=== PATIENT | male | born 1955 | race Hispanic/Latino ===

== ENCOUNTER → 2017-11-30 | Day surgery (SDC) | payer BC ==
[2017-11-26 15:18] LABS: BASOPHILS % 0.4 % (0.0-1.0); EOSINOPHILS # (AUTO) 0.1 (0.0-0.4); EOSINOPHILS % 1.2 % (0.0-6.0); HEMATOCRIT 32.9 % (38.2-49.6); HEMOGLOBIN 10.4 g/dL (14.0-18.0); LYMPHOCYTES # (AUTO) 1.8 (1.0-3.2); LYMPHOCYTES % 24.9 % (18.0-39.1); MEAN CORPUSCULAR HEMOGLOBIN 23.4 pg (28-32); MEAN CORPUSCULAR HGB CONC 31.6 g/dL (31-35); MEAN CORPUSCULAR VOLUME 73.9 fL (81-99); MONOCYTES # (AUTO) 0.6 (0.2-0.8); MONOCYTES % 7.7 % (4.4-11.3); NEUTROPHILS # (AUTO) 4.7 (2.1-6.9); NEUTROPHILS % 65.4 % (38.7-80.0); PLATELET COUNT 343 x10e3/uL (140-360); RED BLOOD COUNT 4.45 x10e6/uL (4.3-5.7); RED CELL DISTRIBUTION WIDTH 15.1 % (11.7-14.4)
[2017-11-26 15:36] LABS: ALANINE AMINOTRANSFERASE 18 IU/L (0-55); ALBUMIN 3.8 g/dL (3.5-5.0); ALKALINE PHOSPHATASE 141 IU/L (40-150); ANION GAP 13.7 mmol/L (8-16); BLOOD UREA NITROGEN 14 mg/dL (7-26); BUN/CREATININE RATIO 14 (6-25); CALCIUM 9.5 mg/dL (8.4-10.2); CARBON DIOXIDE 28 mmol/L (22-29); CHLORIDE 102 mmol/L (98-107); CREATININE, SERUM 1.01 mg/dL (0.72-1.25); EST GLOMERULAR FILTRATION RATE > 60 ML/MIN (60-); GLUCOSE 140 mg/dL (74-118); POTASSIUM 3.7 mmol/L (3.5-5.1); SODIUM 140 mmol/L (136-145)
[~2017-11-30] MED LIST: FENTANYL CITRATE/PF 100MCG/2 ML INJ ONE; GLUCAGON FOR INJ 1 MG VIAL ONE; HYOSCYAMINE SULFATE 0.5 MG/ML AMP ONE; LIDOCAINE HCL 2% LOCAL INJ 5 ML SDV VIAL INJ ONE; LISINOPRIL-HCT1 EACH PO; METFORMIN HCL850 MG PO; MIDAZOLAM HCL 2 MG/2 ML VIAL ONE; PHENYLEPHRINE HCL 1% 10 MG/ML VIAL ONE; PROPOFOL IV EMULSION 10 MG/ML 50 ML VIAL ONE
--- NOTE | 2017-11-30 13:39 | Operative Report ---
DATE OF PROCEDURE: November 30, 2017 REFERRING PHYSICIAN: Dr. Muriel Flower PROCEDURE PERFORMED: Colonoscopy with biopsies. INDICATIONS FOR COLONOSCOPY: Colorectal cancer screening. MEDICATION: Patient was done under MAC. Please see anesthesiologist's note. PROCEDURE: With patient in left lateral decubitus position, the flexible fiberoptic Olympus colonoscope was inserted into the rectum with ease and advanced to approximately 20 cm from the anal verge. A fully circumferential lesion was noted at approximately 20 cm and could not be traversed with the adult colonoscope. The scope was then withdrawn and an EGD scope was reintroduced and with gentle persistent pressure, the mass was traversed and the scope was advanced all the way to the cecum. A minute ulcer was noted in the cecum that was biopsied. The scope was then withdrawn slowly. The area was visualized and mucosa overlying the ascending, transverse and descending grossly appeared to be within normal limits. There was some minimal diverticulosis noted in the distal descending colon and the sigmoid colon. Multiple biopsies were obtained from the mass and also the site was tattooed. The scope was then retroflexed into the distal rectum and small internal hemorrhoids were noted, none of which was actively bleeding. The scope was then straightened out. It was subsequently withdrawn. Patient tolerated the procedure well. IMPRESSION 1. Cecal ulcer, minute, biopsied. 2. Diverticulosis. 3. Fully circumferential mass at 20 cm from anal verge traversed only with the esophagogastroduodenoscopy scope, biopsies obtained. Site tattooed. 4. Internal hemorrhoids, none actively bleeding. PLAN: Follow up histology. Patient will need a CT scan of the abdomen and pelvis. General surgical consult. Timing of followup colonoscopy will be one year after surgery. Job#: [id number] cc:MD DANII JAUREGUI MD
== END | disposition home or self-care (01) ==
LOC: OR 09:57 → EDBD 12:00
PROVIDERS: ATTEND Internal Medicine Gastroenterology
DX: Z12.11 Encounter for screening for malignant neoplasm of colon (principal); K57.30 Diverticulosis of large intestine without perforation or abscess without bleeding; K63.3 Ulcer of intestine; E11.9 Type 2 diabetes mellitus without complications; I10 Essential (primary) hypertension; Z83.3 Family history of diabetes mellitus; E66.3 Overweight; Z68.29 Body mass index [BMI] 29.0-29.9, adult; K64.8 Other hemorrhoids; K62.89 Other specified diseases of anus and rectum; Z01.812 Encounter for preprocedural laboratory examination
CPT/HCPCS: 36415 ×2; 45380; 80053; 82948; 85025; 93005; J1610; J1980; J2001; J2250; J2370; 45381

== ENCOUNTER → 2017-12-01 | Outpatient (CLI) | payer BC ==
[~2017-12-01] MED LIST changes: +DIATRIZOATE MEGL/DIATRIZOA SOD 30 ML BTL PO ONE; -FENTANYL CITRATE/PF 100MCG/2 ML INJ ONE; -GLUCAGON FOR INJ 1 MG VIAL ONE; -HYOSCYAMINE SULFATE 0.5 MG/ML AMP ONE; +IOPAMIDOL 370 MG/ML 200 ML INFUS..BTL INJ ONE; -LIDOCAINE HCL 2% LOCAL INJ 5 ML SDV VIAL INJ ONE; -MIDAZOLAM HCL 2 MG/2 ML VIAL ONE; -PHENYLEPHRINE HCL 1% 10 MG/ML VIAL ONE; -PROPOFOL IV EMULSION 10 MG/ML 50 ML VIAL ONE; +SODIUM CHLORIDE 0.9% 50ML 50 ML ONE
--- NOTE | 2017-12-01 11:14 | Diagnostic Imaging Report ---
PROCEDURE: CT ABDOMEN AND PELVIS WITH CONTRAST TECHNIQUE: The abdomen and pelvis were scanned utilizing a multidetector helical scanner from the diaphragm to the lesser trochanter after the IV administration of 80 cc Isovue 370 and the oral administration of Gastrografin. Coronal and sagittal multiplanar reformations were obtained. COMPARISON: None. INDICATIONS: ABDOMEN PAIN, cecal mass FINDINGS: LOWER THORAX: 1.2 cm round noncalcified solid nodule in the left upper lobe (series 2, image one). Plain bases are otherwise unremarkable. No pleural or pericardial effusion. HEPATOBILIARY: Multiple (10-15) irregularly marginated hypoattenuating lesions, some with peripheral hyperemia, scattered throughout the right and left lobes. Photoengraving Etcher lesions measure 4.4 cm in segment 8 (series 2 image 15), 2.9 cm in segment 4A (series 2 image 17), 4.2 cm in segment 3 (series 2, image 23), 3.3 cm in segment 5 (series 2 image 30), 7 cm in segment 5-6 (series 2 image 32). No intrahepatic biliary ductal dilatation. The gallbladder is unremarkable. SPLEEN: No splenomegaly. PANCREAS: No focal masses or ductal dilatation. ADRENALS: No adrenal nodules. KIDNEYS/URETERS: Subcentimeter hypoattenuating lesions in the upper pole of the right kidney are too small to further characterize though likely to represent small cysts. PELVIC ORGANS/BLADDER: The urinary bladder is unremarkable. The prostate is enlarged, measuring 4.5 cm. PERITONEUM / RETROPERITONEUM: No ascites. No pneumoperitoneum. LYMPH NODES: No pelvic side wall lymphadenopathy, though there is an enlarged mesocolic lymph node adjacent to the sigmoid colon measuring 1.3 cm in diameter (series 2 image 68). 0.7 cm inferior mesenteric lymph node is seen on series 2 image 67. VESSELS: The abdominal aorta, major branch vessels, and iliac arterial systems are patent with minimal atherosclerotic calcification of the infrarenal abdominal aorta and iliac arterial systems. The left hepatic artery is replaced to the left gastric artery. A single renal artery perfuses each kidney. Portal vein, splenic vein, and central superior mesenteric vein are patent. GI TRACT: Irregular wall thickening and enhancement involving an approximately 5 cm segment of sigmoid colon (series 2 image 77). Scattered diverticula distally along the sigmoid colon without evidence of diverticulitis. The remainder of the large bowel shows no distention or wall thickening. The appendix is normal. No small bowel dilatation to suggest obstruction. BONES AND SOFT TISSUES: Bilateral fat containing inguinal hernias. Small fat containing umbilical hernia. No additional focal soft tissue abnormalities. Bilateral degenerative changes of the hips with multilevel degenerative disc the disease and facet arthropathy of the lumbar spine. No osseous destructive lesions. IMPRESSION: Findings are highly concerning for primary sigmoid colon malignancy with regional and distant metastases involving mesenteric lymph nodes, the liver, and the left lung. Findings were discussed by telephone with Nurse Practitioner Ms. Coats of Dr. Gold's office at 1110 hrs. on 12/01/2017. Dictated by: Christopher Ngo M.D. on 12/01/2017 at 11:20 Electronically approved by: Christopher Ngo M.D. on 12/01/2017 at 11:20
== END ==
LOC: CT 08:07
PROVIDERS: ATTEND Internal Medicine Gastroenterology
DX: R10.9 Unspecified abdominal pain (principal); R19.09 Other intra-abdominal and pelvic swelling, mass and lump; K63.9 Disease of intestine, unspecified
CPT/HCPCS: 74177; Q9967; 76937

== ENCOUNTER → 2018-01-01 | Day surgery (SDC) | payer BC ==
[2017-12-31 09:54] LABS: BASOPHILS % 0.4 % (0.0-1.0); EOSINOPHILS % 0.5 % (0.0-6.0); HEMATOCRIT 34.3 % (38.2-49.6); HEMOGLOBIN 10.7 g/dL (14.0-18.0); LYMPHOCYTES # (AUTO) 1.9 (1.0-3.2); LYMPHOCYTES % 25.3 % (18.0-39.1); MEAN CORPUSCULAR HEMOGLOBIN 23.3 pg (28-32); MEAN CORPUSCULAR HGB CONC 31.2 g/dL (31-35); MEAN CORPUSCULAR VOLUME 74.7 fL (81-99); MONOCYTES # (AUTO) 0.6 (0.2-0.8); MONOCYTES % 8.5 % (4.4-11.3); NEUTROPHILS # (AUTO) 4.7 (2.1-6.9); PLATELET COUNT 311 x10e3/uL (140-360); RED BLOOD COUNT 4.59 x10e6/uL (4.3-5.7); RED CELL DISTRIBUTION WIDTH 14.9 % (11.7-14.4)
[2017-12-31 10:10] LABS: BLOOD UREA NITROGEN 19 mg/dL (7-26); BUN/CREATININE RATIO 21 (6-25); CALCIUM 9.8 mg/dL (8.4-10.2); CARBON DIOXIDE 25 mmol/L (22-29); CHLORIDE 102 mmol/L (98-107); CREATININE, SERUM 0.91 mg/dL (0.72-1.25); EST GLOMERULAR FILTRATION RATE > 60 ML/MIN (60-); GLUCOSE 125 mg/dL (74-118); SODIUM 137 mmol/L (136-145)
--- NOTE | 2017-12-31 14:49 | Diagnostic Imaging Report ---
PROCEDURE: X-RAY CHEST, TWO VIEWS COMPARISON: None. INDICATIONS: PRE-OP/LINE PLACEMENT FOR IV ACCESS FINDINGS: LUNGS: No consolidations or edema. PLEURA: No effusions or pneumothorax. HEART \T\ MEDIASTINUM: The heart is within normal size-limits. BONES \T\ SOFT TISSUES: No acute findings. Degenerative changes of the spine and shoulders. CONCLUSION: No acute thoracic abnormality. Bryon Walters D.O. Dictated by: Bryon Walters D.O. on 12/31/2017 at 10:38 Electronically approved by: Bryon Walters D.O. on 12/31/2017 at 13:18
[~2018-01-01] MED LIST changes: +BUPIVACAINE 0.25% 30ML SDV INJ ONE; +CEFAZOLIN SOD 1 GM VIAL ONE; +DEXAMETHASONE SOD PHOS INJ 4 MG/ML VIAL ONE; -DIATRIZOATE MEGL/DIATRIZOA SOD 30 ML BTL PO ONE; +FENTANYL CITRATE/PF 100MCG/2 ML INJ ONE; +HEPARIN SOD (PORCINE) 5,000 UNIT/ML VIAL ONE; -IOPAMIDOL 370 MG/ML 200 ML INFUS..BTL INJ ONE; +KETOROLAC TROMETHAMINE 30 MG/ML VIAL ONE; +LIDOCAINE HCL 1% LOCAL INJ 20 ML VIAL ONE; +LIDOCAINE HCL 2% LOCAL INJ 5 ML SDV VIAL INJ ONE; +LISINOPRIL-HCT1 EAC2 PO; +MIDAZOLAM HCL 2 MG/2 ML VIAL ONE; +ONDANSETRON HCL INJ 2 MG/ML VIAL ONE; +PROPOFOL IV EMULSION 10 MG/ML 20 ML VIAL ONE; +SEVOFLURANE INHAL SOLN 250 ML PEN BTL ONE; +SODIUM CHLORIDE 0.9% 500ML 500 ML ONE; -SODIUM CHLORIDE 0.9% 50ML 50 ML ONE
--- NOTE | 2018-01-01 16:33 | Operative Report ---
DATE OF PROCEDURE: January 01, 2018 PREOPERATIVE DIAGNOSIS: Colon cancer, needing IV access for chemotherapy. POSTOPERATIVE DIAGNOSIS: Colon cancer, needing IV access for chemotherapy. OPERATION PERFORMED: Placement of left subclavian venous access port under C-arm guidance. ANESTHESIA: General. COMPLICATIONS: None. ESTIMATED BLOOD LOSS: Minimal. DESCRIPTION OF PROCEDURE: With the patient lying in bed in the Trendelenburg position under good general anesthesia, the left chest and neck were prepped with Betadine solution and draped in the usual manner. A standard left subclavian mini puncture was performed without any difficulty and a guidewire was advanced into central venous position. Using the C-arm the tip of the guidewire was confirmed to be at the level of the superior vena cave and the left lung was fully expanded. A pocket was then created in the left anterior chest to accept the reservoir and the catheter was then threaded to the subclavian position. The reservoir was then anchored to the anterior chest wall with interrupted sutures of 2-0 silk. The reservoir and catheter were fully heparinized and the catheter was cut to the appropriate length. The peel-away sheath introducer was then placed over the guidewire. The guidewire was removed and the catheter was threaded through the peel-away sheath introducer without any difficulty. The peel-away sheath was removed. There was good blood return and the reservoir and catheter were fully heparinized. Using the C-arm, the tip of the catheter was confirmed to be at the level of the superior vena cava and the left lung was fully expanded. The wounds were then closed in layers. The subcutaneous tissue was approximated with 3-0 and 4-0 Vicryl and the skin was closed with subcuticular 5-0 Vicryl. Benzoin, Steri-Strips and dressings were applied. The sponge, lap and needle count was correct. Patient tolerated the procedure well and returned to the recovery room in stable condition. Job#: [id number]
[2018-01-01 16:45] VITALS: BP 115/74
== END | disposition home or self-care (01) ==
LOC: OR 11:54
PROVIDERS: ATTEND Surgery
DX: C18.9 Malignant neoplasm of colon, unspecified (principal); E11.9 Type 2 diabetes mellitus without complications; I10 Essential (primary) hypertension; Z01.812 Encounter for preprocedural laboratory examination
CPT/HCPCS: 36415 ×2; 36561; 71046; 76000; 80048; 82948; 85025; 93005; C1751; J0690; J1100; J1644; J1885; J2001; J2250; J2405; J7040

== ENCOUNTER 2018-06-09 06:29 | Inpatient (IN) | payer BC ==
[2018-06-04 12:26] LABS: BASOPHILS % 0.4 % (0.0-1.0); EOSINOPHILS # (AUTO) 0.1 (0.0-0.4); EOSINOPHILS % 0.7 % (0.0-6.0); HEMATOCRIT 42.6 % (38.2-49.6); HEMOGLOBIN 15.1 g/dL (14.0-18.0); LYMPHOCYTES # (AUTO) 2.3 (1.0-3.2); LYMPHOCYTES % 32.1 % (18.0-39.1); MEAN CORPUSCULAR HEMOGLOBIN 30.8 pg (28-32); MEAN CORPUSCULAR HGB CONC 35.4 g/dL (31-35); MEAN CORPUSCULAR VOLUME 86.9 fL (81-99); MONOCYTES # (AUTO) 0.5 (0.2-0.8); NEUTROPHILS # (AUTO) 4.2 (2.1-6.9); NEUTROPHILS % 59.2 % (38.7-80.0); PLATELET COUNT 278 x10e3/uL (140-360); RED CELL DISTRIBUTION WIDTH 12.6 % (11.7-14.4)
[2018-06-04 12:39] LABS: ANION GAP 16.9 mmol/L (8-16); BLOOD UREA NITROGEN 11 mg/dL (7-26); BUN/CREATININE RATIO 13 (6-25); CALCIUM 9.7 mg/dL (8.4-10.2); CARBON DIOXIDE 27 mmol/L (22-29); CHLORIDE 100 mmol/L (98-107); CREATININE, SERUM 0.82 mg/dL (0.72-1.25); EST GLOMERULAR FILTRATION RATE > 60 ML/MIN (60-); GLUCOSE 136 mg/dL (74-118); POTASSIUM 3.9 mmol/L (3.5-5.1); SODIUM 140 mmol/L (136-145)
--- NOTE | 2018-06-04 13:14 | Diagnostic Imaging Report ---
EXAMINATION: PA and lateral views of the chest. COMPARISON: None CLINICAL HISTORY: Preoperative evaluation, colon cancer DISCUSSION: Lines/tubes: Left chest port with tip overlying the SVC. Lungs: The lungs are well inflated and clear. No pneumonia or pulmonary edema. Pleura: No pleural effusion or pneumothorax. Heart and mediastinum: The cardiomediastinal silhouette is normal. Bones and soft tissues: No acute bony abnormalities. IMPRESSION: No acute cardiopulmonary abnormalities. Signed by: Dr. Melquiades Robertson M.D. on 06/04/2018 1:11 PM
[~2018-06-09] VITALS: Ht 165.1 cm; Wt 82.4 kg
[~2018-06-09 06:29] MED LIST changes: -BUPIVACAINE 0.25% 30ML SDV INJ ONE; -CEFAZOLIN SOD 1 GM VIAL ONE; -DEXAMETHASONE SOD PHOS INJ 4 MG/ML VIAL ONE; -FENTANYL CITRATE/PF 100MCG/2 ML INJ ONE; -HEPARIN SOD (PORCINE) 5,000 UNIT/ML VIAL ONE; -KETOROLAC TROMETHAMINE 30 MG/ML VIAL ONE; -LIDOCAINE HCL 1% LOCAL INJ 20 ML VIAL ONE; -LIDOCAINE HCL 2% LOCAL INJ 5 ML SDV VIAL INJ ONE; +METFORMIN HCL500 MG PO; -MIDAZOLAM HCL 2 MG/2 ML VIAL ONE; +OMEGA 3 FISH O1 EACH PO; -ONDANSETRON HCL INJ 2 MG/ML VIAL ONE; -PROPOFOL IV EMULSION 10 MG/ML 20 ML VIAL ONE; -SEVOFLURANE INHAL SOLN 250 ML PEN BTL ONE; -SODIUM CHLORIDE 0.9% 500ML 500 ML ONE
[2018-06-09] MEDS ORDERED: INSULIN REGULAR, HUMAN 100 UNIT/1 ML 3ML VIAL ONE (07:11)
[2018-06-09] MEDS: DEXTROSE 5%/LACTATED RINGERS 1,000 ML IV SCH ×2 (11:12→21:12)
[2018-06-09] MEDS ORDERED: NALOXONE HCL INJ 0.4 MG/ML AMP IV PRN (11:15)
[2018-06-09] MEDS ORDERED: PROMETHAZINE HCL (IM) 25 MG/ML VIAL IV PRN (11:15)
[2018-06-09] MEDS ORDERED: ACETAMINOPHEN 1000 MG/100 ML IV PRN (11:15)
[2018-06-09] MEDS ORDERED: HYDROMORPHONE 2MG/ML 2 MG/ML ML ONE (11:44)
[2018-06-09] MEDS ORDERED: HYDROMORPHONE 0.2MG/ML-SOD CHL 30ML PCA SYRINGE IV ONE (11:44)
[2018-06-09] MEDS ORDERED: PROMETHAZINE 12.5MG/ NACL 0.9% 50 ML IV PRN (11:45)
--- NOTE | 2018-06-09 12:13 | Operative Report ---
DATE OF PROCEDURE: June 09, 2018 PREOPERATIVE DIAGNOSIS: Carcinoma of the sigmoid colon with liver metastasis. POSTOPERATIVE DIAGNOSIS: Carcinoma of the sigmoid colon with liver metastasis. OPERATION PERFORMED: Exploratory laparotomy and sigmoid colon resection. PROFESSOR OF BIOLOGY: Dr. Corbin Carpenter. ANESTHESIA: General endotracheal. COMPLICATIONS: None. ESTIMATED BLOOD LOSS: 50 mL. DESCRIPTION OF PROCEDURE: With the patient lying in bed in the supine position, with the legs up in stirrups, the abdomen and perineum were prepped with Betadine solution and draped in the usual manner. A lower midline incision was made. It was carried down through the subcutaneous tissue down to the midline fascia. The midline fascia was opened, and the abdomen was entered. Upon entering the abdominal cavity, examination revealed the tattoo that the patient had in the area of the colon cancer. This was actually up higher in the sigmoid colon than we had anticipated. This was actually a mid-sigmoid colon lesion. Examination of the rest of the abdominal cavity revealed the presence of some palpable nodules in the dome of the right lobe of the liver. The rest of the abdominal exploration was otherwise within normal limits. We decided to go ahead and proceed with the colon resection. The left colon was then mobilized off of the lateral gutter and brought medially without any difficulty. The splenic flexure was brought down without any problems. At this point, the colon was then divided proximally and distally to the lesion, removing the entire sigmoid colon. Using the Enseal device, the mesentery of the colon was then slowly and carefully taken down, and the colon was divided proximally and distally with a stapler. The specimen was sent for pathological examination. After this was done, a [id number] anastomosis was then created with another application of the PARKER 75 stapler with the remaining opening closed with a TA-60 stapler. Gloves and instruments were changed. Anastomosis was then reinforced with interrupted sutures of 3-0 silk, and the mesenteric rent was closed with a running suture of 2-0 Vicryl. The abdomen was then irrigated. Hemostasis was ascertained. The abdomen was then closed in layers. Peritoneum was closed with a running suture of #1 Vicryl. The midline fascia was closed with a running suture of #1 PDS, and the skin was closed with clips. A dressing was applied. The sponge, lap and needle count was correct. Patient tolerated the procedure well and returned to the recovery room in stable condition. Job#: [id number] MH
[2018-06-09 14:55] VITALS: BP 123/64
--- NOTE | 2018-06-09 15:00 | NUR ---
ARRIVED VIA STRETCHER, AA&OX3, NC @2L, ABD DRESSING CDI/BINDER INTACT, DOLL TO BSD, PAIN CONTROLLED WITH BRANCH OPERATIONS COORDINATOR, CHECKED WITH PACU NURSE, ORIENTED TO ROOM AND CALL LIGHT , CALL LIGHT WITHIN REACH
[2018-06-09 15:20] VITALS: BP 125/64
[2018-06-09] MEDS: CEFOXITIN 1GM/ NS 50ML 50 ML IV SCH ×2 (15:30→20:41)
[2018-06-09] MEDS: PANTOPRAZOLE 40 MG 10ML VIAL IV SCH (15:30)
[2018-06-09] MEDS ORDERED: SEVOFLURANE INHAL SOLN 250 ML PEN BTL ONE (17:48)
[2018-06-09] MEDS ORDERED: GLYCOPYRROLATE INJ 1MG/ 5 ML SYR ONE (17:48)
[2018-06-09] MEDS ORDERED: PHENYLEPHRINE HCL 1% 10 MG/ML VIAL ONE (17:48)
[2018-06-09] MEDS ORDERED: LIDOCAINE HCL 2% LOCAL INJ 5 ML SDV VIAL INJ ONE (17:48)
[2018-06-09] MEDS ORDERED: PROPOFOL IV EMULSION 10 MG/ML 20 ML VIAL ONE (17:48)
[2018-06-09] MEDS ORDERED: CEFOXITIN SOD 1 GM VIAL ONE (17:48)
[2018-06-09] MEDS ORDERED: ACETAMINOPHEN 1000 MG/100 ML IV ONE (17:48)
[2018-06-09] MEDS ORDERED: DEXAMETHASONE SOD PHOS INJ 4 MG/ML VIAL ONE (17:48)
[2018-06-09] MEDS ORDERED: NEOSTIGMINE 5 MG/5ML SYR ONE (17:48)
[2018-06-09] MEDS ORDERED: ONDANSETRON HCL INJ 2MG/ML 2ML 2 MG/ML VIAL ONE (17:48)
[2018-06-09] MEDS ORDERED: ROCURONIUM BROMIDE 10 MG/ML 5ML VIAL ONE (17:48)
[2018-06-09] MEDS ORDERED: MIDAZOLAM HCL 2 MG/2 ML VIAL ONE (18:44)
[2018-06-09] MEDS ORDERED: FENTANYL CITRATE/PF 100MCG/2 ML INJ ONE (18:44)
--- NOTE | 2018-06-09 19:36 | NUR ---
TELEPHONED MD Karina LARSON TO MAKE AWARE OF PT SPOT BLOOD GLUCOSE LEVEL, AND TO CLARIFY IF WANTS SS AND INSULIN, AWAITING CALL BACK
--- NOTE | 2018-06-09 19:40 | NUR ---
Received change of shift report from AM nurse. Walking rounds completed.
[2018-06-09 20:00] VITALS: BP 108/66
[2018-06-09] MEDS: INSULIN REGULAR, HUMAN 100 UNIT/1 ML 3ML VIAL SQ SCH (23:12)
[2018-06-10] VITALS: BP 111/63
[2018-06-10 04:00] VITALS: BP 124/63
[2018-06-10] MEDS: HYDROMORPHONE 0.2MG/ML-SOD CHL 30ML PCA SYRINGE IV PRN (04:24)
[2018-06-10] MEDS: INSULIN REGULAR, HUMAN 100 UNIT/1 ML 3ML VIAL SQ SCH ×3 (06:00→19:26)
[2018-06-10 06:25] LABS: BASOPHILS % 0.2 % (0.0-1.0); HEMATOCRIT 38.2 % (38.2-49.6); HEMOGLOBIN 13.1 g/dL (14.0-18.0); LYMPHOCYTES % 8.8 % (18.0-39.1); MEAN CORPUSCULAR HEMOGLOBIN 30.4 pg (28-32); MEAN CORPUSCULAR HGB CONC 34.3 g/dL (31-35); MEAN CORPUSCULAR VOLUME 88.6 fL (81-99); MONOCYTES # (AUTO) 0.9 (0.2-0.8); MONOCYTES % 8.4 % (4.4-11.3); NEUTROPHILS % 82.2 % (38.7-80.0); PLATELET COUNT 242 x10e3/uL (140-360); RED BLOOD COUNT 4.31 x10e6/uL (4.3-5.7); RED CELL DISTRIBUTION WIDTH 11.8 % (11.7-14.4)
[2018-06-10] MEDS: DEXTROSE 5%/LACTATED RINGERS 1,000 ML IV SCH ×2 (06:31→17:44)
[2018-06-10 06:38] LABS: ANION GAP 14.6 mmol/L (8-16); BLOOD UREA NITROGEN 13 mg/dL (7-26); BUN/CREATININE RATIO 14 (6-25); CALCIUM 8.9 mg/dL (8.4-10.2); CARBON DIOXIDE 25 mmol/L (22-29); CHLORIDE 101 mmol/L (98-107); EST GLOMERULAR FILTRATION RATE > 60 ML/MIN (60-); GLUCOSE 205 mg/dL (74-118); POTASSIUM 4.6 mmol/L (3.5-5.1); SODIUM 136 mmol/L (136-145)
--- NOTE | 2018-06-10 07:16 | NUR ---
pt lying in bed resp even and unlabored at this time, MAGAZINE PUBLISHER pump intact, pt arousal to name, no distress noted, pt able to make needs known.
[2018-06-10 07:50] VITALS: BP 110/55
[2018-06-10 12:15] VITALS: BP 116/65
[2018-06-10 15:56] VITALS: BP 138/64
--- NOTE | 2018-06-10 16:30 | NUR ---
CASE MANAGEMENT INITIAL ASSESSMENT Bulk Plant Supervisor to bedside to discuss plan of care with patient/family. CM/SW role and care transitions discussed. Anticipated discharge plan discussed along with duration of care. CM/SW discussed patients right to make decisions in care. CM/SW work hours given. Patient lives: with and 2 daughters Admit/Transfer: from PACU Hospital/ER visits since last admit: was last admitted December of last year, no visits since then POA/Emergency contact: Stacey Rowan [phone] Current/Previous Home Health: none PCP/Follow-up Care: Dr. Dia Flower / Dr. Avila for oncology - pt states he will follow up with Dr. Avila after discharge Current/Previous DME: none Medications (referring to index hospitalization or the first time you were in the hospital) a. Were changes made in your medications when you were in the hospital on [date of index hospitalization]? n/a b. Did you understand the changes? n/a c. Were you able to obtain your new medications right away? n/a d. Were you able to take your medications like the doctor wanted you to? n/a e. Did the hospital give you an accurate, easy to understand list of medications when you left? n/a Scale of 1-10 how comfortable does patient feel with disease management in outpatient settin Other Services: recently on chemo, last treatment April 15 or Employment Status: employed at [employer] Areas of Concerns: cancer Referral Needs: none Education Needs: medical management IMM/BULLOCK given and signed (if applicable): n/a Goal for discharge: home CM/SW left business card at the bedside with contact information. Name and number was also written on the patients whiteboard. Patient verbalized understanding of discussion. CM will follow-up with ongoing discharge and transition of care needs.
[2018-06-10] MEDS: PANTOPRAZOLE 40 MG 10ML VIAL IV SCH (17:44)
--- NOTE | 2018-06-10 19:49 | NUR ---
Received change of shift report from Am nurse. Walking rounds completed.
[2018-06-10 20:00] VITALS: BP 145/70
--- NOTE | 2018-06-10 20:01 | NUR ---
report given to oncoming nurse
[2018-06-11] VITALS (7 sets, daily range): BP systolic 111–149; BP diastolic 61–79
--- NOTE | 2018-06-11 | NUR ---
Patient AAOx3. C/O pain and reminded to use DEHYDROGENATION CONVERTER HELPER. Collazo to bedside with yellow clear urine noted. IV intact to right and left hand.
[2018-06-11] MEDS ORDERED: HYDROMORPHONE 0.2MG/ML-SOD CHL 30ML PCA SYRINGE IV ONE (01:02)
[2018-06-11] MEDS: HYDROMORPHONE 0.2MG/ML-SOD CHL 30ML PCA SYRINGE IV PRN (01:11)
[2018-06-11] MEDS: DEXTROSE 5%/LACTATED RINGERS 1,000 ML IV SCH ×3 (03:12→21:48)
[2018-06-11 06:52] LABS: BASOPHILS % 0.3 % (0.0-1.0); EOSINOPHILS % 0.1 % (0.0-6.0); HEMATOCRIT 34.3 % (38.2-49.6); HEMOGLOBIN 11.9 g/dL (14.0-18.0); LYMPHOCYTES # (AUTO) 2.4 (1.0-3.2); LYMPHOCYTES % 26.9 % (18.0-39.1); MEAN CORPUSCULAR HEMOGLOBIN 31.5 pg (28-32); MEAN CORPUSCULAR HGB CONC 34.7 g/dL (31-35); MEAN CORPUSCULAR VOLUME 90.7 fL (81-99); MONOCYTES # (AUTO) 0.8 (0.2-0.8); MONOCYTES % 8.8 % (4.4-11.3); NEUTROPHILS # (AUTO) 5.6 (2.1-6.9); NEUTROPHILS % 63.6 % (38.7-80.0); PLATELET COUNT 216 x10e3/uL (140-360); RED BLOOD COUNT 3.78 x10e6/uL (4.3-5.7); RED CELL DISTRIBUTION WIDTH 11.9 % (11.7-14.4)
[2018-06-11 07:07] LABS: ANION GAP 11.7 mmol/L (8-16); BLOOD UREA NITROGEN 12 mg/dL (7-26); BUN/CREATININE RATIO 15 (6-25); CALCIUM 8.8 mg/dL (8.4-10.2); CARBON DIOXIDE 28 mmol/L (22-29); CHLORIDE 101 mmol/L (98-107); CREATININE, SERUM 0.79 mg/dL (0.72-1.25); EST GLOMERULAR FILTRATION RATE > 60 ML/MIN (60-); GLUCOSE 150 mg/dL (74-118); POTASSIUM 3.7 mmol/L (3.5-5.1); SODIUM 137 mmol/L (136-145)
[2018-06-11] MEDS ORDERED: HYDROMORPHONE 1MG/1ML INJ IV PRN (11:45)
[2018-06-11] MEDS: INSULIN REGULAR, HUMAN 100 UNIT/1 ML 3ML VIAL SQ SCH ×3 (12:00→18:00)
[2018-06-11] MEDS ORDERED: HYDROMORPHONE 2MG/ML 2 MG/ML ML IV PRN (12:00)
--- NOTE | 2018-06-11 13:37 | NUR ---
Patient voided at this time. 200ml of clear urine
[2018-06-11] MEDS: PANTOPRAZOLE 40 MG 10ML VIAL IV SCH (15:00)
--- NOTE | 2018-06-11 16:29 | Consultation ---
DATE OF CONSULTATION: June 10, 2018 CONSULTATION TO: Dr. Clem Larson Mr. Porfirio Rowan is a 63-year-old male who was referred to ca for postop evaluation of cancer of the colon. The patient is known to me since 12/28/2017 when the patient was referred to ca for colon cancer, liver metastases and lung metastases. The patient had a baseline CEA of 8557.7 on 12/28/2017. Subsequently, with fairly aggressive systemic chemotherapy in a neoadjuvant fashion consisting of FOLFOX-4, on 04/22/2018, the patient's CEA dropped down to 78.6. The repeat CAT scan did reveal shrinkage of both the liver and lung metastases. Subsequently, the patient was referred to Dr. Larson for resection of the colon. I have communicated with both Dr. Clem Larson as well as Dr. Pena, the pathologist, at [facility] to run a KRAS mutation. SOCIAL HISTORY: Noncontributory. FAMILY HISTORY: Noncontributory. ALLERGIES: REPORTED NONE. MEDICATIONS: At this time are: 1. Lisinopril. 2. Metformin. REVIEW OF SYSTEMS HEENT: Normal. CARDIAC: History of hypertension. RESPIRATORY: Normal. GI: Colon cancer of the sigmoid with liver and lung metastases. : Normal. MUSCULOSKELETAL: Normal. SKIN AND BREASTS: Normal. NEUROENDOCRINE: History of diabetes mellitus, noninsulin dependent. PHYSICAL EXAMINATION GENERAL: Moderately built male. No adenopathy. HEART: Within normal limits. LUNGS: Clear. ABDOMEN: Obese. Midline scar of surgery is seen. RECTAL: Exam deferred. CENTRAL NERVOUS SYSTEM: Essentially normal. EXTREMITIES: Essentially normal. IMPRESSION 1. Metastatic colon cancer. 2. Neoadjuvant chemotherapy with drop in the carcinoembryonic antigen from 8000 to 80. 3. History of hypertension. 4. History of diabetes mellitus. 5. Status post resection of the sigmoid colon primary. PLAN: Run a KRAS mutation. If negative, the patient will be receiving Erbitux along with FOLFIRI to continue the chemotherapy. This is still an incurable cancer, even though a decent response. Job#: [id number] cc:CLEM LARSON MD
[2018-06-11] MEDS: BISACODYL 10 MG SUPP PR SCH (21:43)
--- NOTE | 2018-06-11 22:30 | NUR ---
RECEIVED REPORT FROM AM RN.WALKING ROUNDS DONE.PAIN VOICED09/10.PAIN MEDICATION GIVEN. VOIDED.NO PASS GAS.ABD DRESSING DRY AND ABD BINDER IS IN PLACE.BED LOCKED AND IN LOWEST POSITION.PHONE AND CALL LIGHT WITHIN REACH.INSTRUCTED TO CALL FOR ASSISTANCE NEEDED.KEEP MONITOR THE PT.
[2018-06-12] VITALS (8 sets, daily range): BP systolic 132–162; BP diastolic 72–83
[2018-06-12] MEDS: INSULIN REGULAR, HUMAN 100 UNIT/1 ML 3ML VIAL SQ SCH ×4 (06:00→18:00)
--- NOTE | 2018-06-12 06:50 | NUR ---
REPORT GIVEN TO THE ONCOMING RN.WALKING ROUNDS DONE.STABLE CONDITION.
[2018-06-12] MEDS: BISACODYL 10 MG SUPP PR SCH (08:00)
[2018-06-12 09:05] LABS: BASOPHILS % 0.3 % (0.0-1.0); EOSINOPHILS # (AUTO) 0.1 (0.0-0.4); EOSINOPHILS % 0.8 % (0.0-6.0); HEMATOCRIT 34.7 % (38.2-49.6); HEMOGLOBIN 12.4 g/dL (14.0-18.0); LYMPHOCYTES # (AUTO) 1.6 (1.0-3.2); LYMPHOCYTES % 22.7 % (18.0-39.1); MEAN CORPUSCULAR HGB CONC 35.7 g/dL (31-35); MEAN CORPUSCULAR VOLUME 86.8 fL (81-99); MONOCYTES # (AUTO) 0.6 (0.2-0.8); MONOCYTES % 8.2 % (4.4-11.3); NEUTROPHILS # (AUTO) 4.8 (2.1-6.9); NEUTROPHILS % 67.6 % (38.7-80.0); PLATELET COUNT 190 x10e3/uL (140-360); RED CELL DISTRIBUTION WIDTH 11.7 % (11.7-14.4)
[2018-06-12 09:22] LABS: ANION GAP 13.5 mmol/L (8-16); BLOOD UREA NITROGEN 9 mg/dL (7-26); BUN/CREATININE RATIO 12 (6-25); CALCIUM 8.9 mg/dL (8.4-10.2); CARBON DIOXIDE 26 mmol/L (22-29); CHLORIDE 105 mmol/L (98-107); CREATININE, SERUM 0.75 mg/dL (0.72-1.25); EST GLOMERULAR FILTRATION RATE > 60 ML/MIN (60-); GLUCOSE 124 mg/dL (74-118); POTASSIUM 3.5 mmol/L (3.5-5.1); SODIUM 141 mmol/L (136-145)
[2018-06-12] MEDS: DEXTROSE 5%/LACTATED RINGERS 1,000 ML IV SCH ×2 (10:04→21:14)
--- NOTE | 2018-06-12 10:27 | NUR ---
PT IN BEDSIDE CHAIR AND TOLERATING. FAMILY AT BEDSIDE.
[2018-06-12] MEDS: PANTOPRAZOLE 40 MG 10ML VIAL IV SCH (13:44)
[2018-06-12] MEDS ORDERED: HYDROCODONE/APAP 7.5MG-325MG 1 EA TAB PO PRN (16:15)
--- NOTE | 2018-06-12 19:10 | NUR ---
PT RESTING IN BED ALERT AND ORIENTED, VISITING WITH FAMILY, IV INFUSING PER ORDER, NO DISTRESS NOTED, CALL LIGHT IN REACH, INSTRUCTED TO CALL WITH NEEDS
[2018-06-13] VITALS (8 sets, daily range): BP systolic 139–182; BP diastolic 81–91
[2018-06-13] MEDS: INSULIN REGULAR, HUMAN 100 UNIT/1 ML 3ML VIAL SQ SCH ×4 (06:00→18:00)
--- NOTE | 2018-06-13 06:04 | NUR ---
PT RESTING IN BED ALERT AND ORIENTED, NO DISTRESS NOTED, DENIES NEEDS, CALL LIGHT IN REACH, INSTRUCTED TO CALL WITH NEEDS, IV INFUSING PER ORDER
[2018-06-13] MEDS: DEXTROSE 5%/LACTATED RINGERS 1,000 ML IV SCH (06:24)
[2018-06-13] MEDS: PANTOPRAZOLE 40 MG 10ML VIAL IV SCH (14:45)
--- NOTE | 2018-06-13 18:48 | NUR ---
HANDOFF REPORT GIVEN TO ONCOMING CUSTOMER SOLUTIONS ARCHITECT NURSE.
--- NOTE | 2018-06-13 19:00 | NUR ---
Received report from morning rn.walking rounds done.lyeing in the bed.sable condition.
--- NOTE | 2018-06-13 21:30 | NUR ---
ASSESSMENT DONE.NO RESP.DISTRESS.NO PAIN VOICED.AMBULATES.VOIDED.DRESSING IS DRY AND INTACT.BED ALARM ON.BED LOCKED AND IN LOWEST POSITION.PHONE AND CALL LIGHT WITHIN REACH.INSTRUCTED TO CALL FOR ASSISTANCE NEEDED.
[2018-06-14] VITALS: BP 145/80
[2018-06-14 04:00] VITALS: BP 141/79
[2018-06-14] MEDS: INSULIN REGULAR, HUMAN 100 UNIT/1 ML 3ML VIAL SQ SCH ×3 (06:00→11:34)
--- NOTE | 2018-06-14 06:50 | NUR ---
Report given to the oncoming rn.walking rounds done.stable condition.
[2018-06-14 07:55] VITALS: BP 152/83
[2018-06-14 08:10] VITALS: BP 152/83
[2018-06-14] MEDS ORDERED: LISINOPRIL 20 MG TAB PO SCH (09:00)
[2018-06-14] MEDS ORDERED: METFORMIN HCL 500 MG TAB PO SCH (09:00)
[2018-06-14 11:37] VITALS: BP 128/74
[2018-06-14] MEDS ORDERED: NORCO 7.5-3251 EACH PO (14:15)
--- NOTE | 2018-06-14 14:51 | NUR ---
DISCHARGE INSTRUCTIONS AND PRESCRIPTIONS GIVEN. PT VERBALIZED UNDERSTANDING. IV DC PRESSURE DRESSING APPLIED AND TAPED. PT IS READY FOR DC AT THIS TIME
== END 2018-06-14 14:53 | disposition home or self-care (01) | DRG 330 ==
LOC: OR 06:29 → PACU V 11:14 → MED/SURG 14:55
PROVIDERS: ADMIT Surgery; ATTEND Surgery
PROC: 0DTN0ZZ Resection of Sigmoid Colon, Open Approach (ICD-10-PCS; principal; 2018-06-09 08:50)
DX: C18.9 Malignant neoplasm of colon, unspecified (principal); C78.7 Secondary malignant neoplasm of liver and intrahepatic bile duct; C78.00 Secondary malignant neoplasm of unspecified lung; E11.9 Type 2 diabetes mellitus without complications; I10 Essential (primary) hypertension
CPT/HCPCS: 36415; 71046; 80048; 82948; 85025; 86850; 86900; 88307; 88329; 93005; 96361; J0694; J1100; J2001; J2250; J2370; J2405

== ENCOUNTER → 2019-04-14 | Outpatient (CLI) | payer BC ==
[~2019-04-14] MED LIST changes: +DIATRIZOATE MEGL/DIATRIZOA SOD 30 ML BTL PO ONE; +IOPAMIDOL 370 MG/ML 200 ML INFUS..BTL INJ ONE; +NORCO 7.5-3251 EACH PO; +SODIUM CHLORIDE 0.9% 50ML 50 ML ONE
[2019-04-14 08:34] LABS: BLOOD UREA NITROGEN 8 mg/dL (7-26); BUN/CREATININE RATIO 11 (6-25); CREATININE, SERUM 0.72 mg/dL (0.72-1.25); EST GLOMERULAR FILTRATION RATE > 60 ML/MIN (60-)
--- NOTE | 2019-04-14 11:34 | Diagnostic Imaging Report ---
CT of the chest, abdomen, and pelvis, with contrast, 04/14/2019. History: Colon cancer, lung and liver metastases. Comparison: None available. Technique: Technique: Multidetector CT scanning of the chest, abdomen, and pelvis was performed from the level of the lung apices to the inferior pubic rami after intravenous and oral administration of contrast. Coronal and sagittal multiplanar reformations were obtained. RADIATION DOSE: Total DLP: 831 mGy*cm Dose modulation, iterative reconstruction, and/or weight based adjustment of the mA/kV was utilized to reduce the radiation dose to as low as reasonably achievable. Discussion: CHEST: The atria, ventricles, aorta, and main pulmonary artery are normal in size. The thyroid is unremarkable. There is no evidence of axillary or mediastinal adenopathy. The pleura and lungs are normal in appearance. There is no evidence of consolidation, mass, or pleural effusion. Left IJ Port-A-Cath is noted. ABDOMEN: Several ill-defined hypodense lesions are present within the liver, 1.1 cm and 1.4 cm lesions in segment 4A, 1 cm lesion in segment 7, and a 2.3 x 2.5 cm lesion in segment 6. A 1.2 cm cyst is noted in the right kidney. The gallbladder, biliary tree, spleen, pancreas, adrenal glands, and left kidney are normal. The hepatic vein, portal vein, and splenic vein are patent. The abdominal aorta is within normal limits for size. A retroaortic left renal vein is noted. The stomach and small bowel are unremarkable. The appendix is visualized and is normal. Suture material is present within the proximal sigmoid colon. There is no evidence of adenopathy or free fluid. PELVIS: The bladder and seminal vesicles are normal in appearance. The prostate is prominent measuring 5.7 cm in transverse diameter. Bilateral fat-containing inguinal hernias are present. There is no evidence of free fluid or adenopathy. BONES AND SOFT TISSUES: Degenerative changes are present throughout the lumbar spine without evidence of lytic or sclerotic lesion. IMPRESSION: 1. No evidence of metastatic disease within the chest. 2. Multiple hypoechoic hepatic lesions consistent with liver metastases. Post surgical changes in the distal colon. 3. Prostatomegaly. 4. Fat-containing bilateral inguinal hernias. Signed by: Dago Bobby on 04/14/2019 11:30 AM
== END ==
LOC: CT 07:01
PROVIDERS: ATTEND Internal Medicine Medical Oncology
DX: C18.9 Malignant neoplasm of colon, unspecified (principal); C78.00 Secondary malignant neoplasm of unspecified lung; C78.7 Secondary malignant neoplasm of liver and intrahepatic bile duct
CPT/HCPCS: 36415; 71260; 74177; 82565; 84520; Q9967

== ENCOUNTER → 2020-01-13 | Outpatient (CLI) | payer BC ==
[~2020-01-13] MED LIST changes: -DIATRIZOATE MEGL/DIATRIZOA SOD 30 ML BTL PO ONE
--- NOTE | 2020-01-13 16:01 | Diagnostic Imaging Report ---
EXAM: CT Abdomen and Pelvis WITHOUT and WITH intravenous contrast - liver mass protocol INDICATION: Metastatic colon cancer COMPARISON: CT abdomen/pelvis of 04/14/2019 TECHNIQUE: Abdomen and pelvis were scanned utilizing a multidetector helical scanner from the lung base to the pubic symphysis after administration of IV contrast. Coronal and sagittal reformations were obtained. Routine protocol was performed. Scan was performed during portal venous phase. IV CONTRAST: 100mL of Isovue 370 ORAL CONTRAST: Water RADIATION DOSE: Total DLP: (DLP x 0.015 x size factor) mGy*cm Dose modulation, iterative reconstruction, and/or weight based adjustment of the mA/kV was utilized to reduce the radiation dose to as low as reasonably achievable. FINDINGS: LOWER THORAX: No lung base consolidation or pulmonary nodule. HEPATOBILIARY: Diffuse hepatic steatosis. No arterially enhancing liver lesions. On the portal venous phase images, again seen are multiple ill-defined hypodensities throughout the right liver for example the 1.2 cm lesion in segment 4 (series 3 image 110). And a cluster of hypodense lesions measuring up to 4.1 cm diameter in segment 6 (series 3 image 121). No biliary ductal dilation. Unremarkable gallbladder. SPLEEN: No splenomegaly. PANCREAS: No focal masses or ductal dilatation. ADRENALS: No adrenal nodules. KIDNEYS/URETERS: No hydronephrosis, stones, or solid mass lesions. PELVIC ORGANS/BLADDER: Unchanged prostatomegaly. PERITONEUM / RETROPERITONEUM: No free air or fluid. LYMPH NODES: No lymphadenopathy. VESSELS: Unremarkable. GI TRACT: No abnormal bowel thickening. No bowel obstruction. BONES AND SOFT TISSUES: Degenerative changes of the visualized spine. No acute osseous injury. No suspicious lytic or blastic lesions. IMPRESSION: Redemonstration of vague hypodensities in the right liver, the largest area of which measures up to 4.1 cm, slightly increased compared to the prior CT of 04/14/2019. Given provided history of metastatic colon cancer, these areas are concerning for hepatic metastases. Diffuse hepatic steatosis. Prostatomegaly. Signed by: Mary Ness MD on 01/13/2020 3:57 PM
== END ==
LOC: CT 14:00
PROVIDERS: ATTEND Internal Medicine Medical Oncology
DX: C78.7 Secondary malignant neoplasm of liver and intrahepatic bile duct (principal)
CPT/HCPCS: 74178; Q9967

== ENCOUNTER → 2020-07-03 | Outpatient (CLI) | payer BC ==
[2020-07-03 15:04] LABS: BLOOD UREA NITROGEN 5 mg/dL (7-26); BUN/CREATININE RATIO 7 (6-25); CREATININE, SERUM 0.69 mg/dL (0.72-1.25); EST GLOMERULAR FILTRATION RATE > 60 ML/MIN (60-)
== END ==
LOC: CT 14:05
PROVIDERS: ATTEND Internal Medicine Medical Oncology
DX: C18.9 Malignant neoplasm of colon, unspecified (principal); C78.00 Secondary malignant neoplasm of unspecified lung; C78.7 Secondary malignant neoplasm of liver and intrahepatic bile duct
CPT/HCPCS: 36415; 71260; 74177; 82565; 84520; Q9967